=== PATIENT | male | born 1960 | race Caucasian/White ===

== ENCOUNTER 2021-09-26 14:10 | Emergency (ER) | payer BC, SELFPAY ==
--- NOTE | ~2021-09-26 | CT_ITS ---
EXAMINATION: CT brain wo con INDICATION: Loss of equilibrium COMPARISON: None TECHNIQUE: Standard unenhanced head CT. The dose-length product (DLP) was 605.33 mGy-cm. The mA was a djusted according to patient size. Iterative reconstruction technique was employed. FINDINGS: There is a crescentic extra-axial fluid collection adjacent to the right frontal and pariet al lobes which measures slightly greater than CSF attenuation. There is mild mass effect on the right frontal and parietal lobes. There is no acute intraparenchymal hemorrhage. No evidence of mass lesio n. No evidence of acute infarction. There is mild periventricular and subcortical hypodensity probabl y related to small vessel ischemic disease. There is mild prominence of the sulci and ventricles rela gordy to cerebral atrophy. Intracranial calcified cerebral atherosclerosis is noted. The orbits and sof t tissues are unremarkable. There is mild mucosal thickening of the paranasal sinuses. IMPRESSION: 1. Crescentic extra-axial fluid collection on the right measuring slightly greater than CSF attenuati on. Finding has the appearance of a resolving subdural hematoma. 2. Age related findings. Reviewed, dictated and finalized at location A. IMPRESSION: 1. Crescentic extra-axial fluid collection on the right measuring slightly grea ter than CSF attenuation. Finding has the appearance of a resolving subdural he matoma. 2. Age related findings.
--- NOTE | ~2021-09-26 | XR_ITS ---
EXAMINATION: XR chest 2V DATE: 09/26/2021 15:14 INDICATION: Weakness. TECHNIQUE: Frontal and lateral views of the chest were obtained. COMPARISON: None. FINDINGS: A calcified right lung nodule and calcified right hilar lymph nodes are consistent with old granulomatous disease. There are airspace opacities in the lower lung zones. No pneumothorax or pleu ral effusion. The heart size is normal. There are old healed bilateral rib fractures. IMPRESSION: 1. Airspace opacities in the lower lung zones, consistent with atelectasis or less likely pneumonia. Reviewed, dictated and finalized at location B. IMPRESSION: 1. Airspace opacities in the lower lung zones, consistent with atelectasis or l ess likely pneumonia.
[2021-09-26 14:38] VITALS: BP 151/87; PULSE 88; RESP 18; TEMP 37.1; O2SAT 97
--- NOTE | 2021-09-26 14:59 | ECG_ITS ---
Measurements Intervals [place] Rate: 82 P: -2 TN: 151 QRS: -2 QRSD: 89 T: 31 QT: 388 QTc: 455 Interpretive Statements SINUS RHYTHM BASELINE WANDER- V4-V5 NORMAL ECG Electronically Signed On 09-26-2021 15:41:36 CDT by Abhilash Werner D.O.
[2021-09-26 15:03] VITALS: BP 150/96; BP 152/84; BP 194/91; PULSE 112; PULSE 88; PULSE 96
[2021-09-26 15:31] LABS: Basophils Absolute Auto 0.1 K/mm3 (0.0-0.1); Basophils Percent Auto 1.3 % (0.2-1.2); Eosinophils Absolute Auto 0.2 K/mm3 (0-0.3); Eosinophils Percent Auto 4.5 % (0-4.4); Hematocrit 45.3 % (42.0-52.0); Immature Granulocyte Absolute 0.01 K/mm3 (0.00-0.031); Immature Granulocyte Percent A 0.2 % (0-0.5); Immature Platelet Fraction Pct 5.8 % (0.9-11.2); Lymphocytes Absolute Auto 1.47 K/mm3 (0.9-3.2); Lymphocytes Percent Auto 27.5 % (18.3-44.2); Mean Corpuscular HGB Conc 33.1 g/dl (32-36); Mean Corpuscular Hemoglobin 37.6 pg (26-34); Mean Corpuscular Volume 113.5 fl (80-100); Mean Platelet Volume 10.3 fl (7.4-10.4); Monocytes Absolute Auto 0.6 K/mm3 (0.1-0.6); Monocytes Percent Auto 10.5 % (2.6-8.5); Platelet Count Result 161 k/mm3 (150-375); Red Blood Count 3.99 M/mm3 (4.6-6.20); Red Cell Distribution Width 13.8 % (11.5-14.5); White Blood Count 5.3 K/mm3 (4.5-10.0)
[2021-09-26 15:39] LABS: Ethanol < 10 mg/dL (<10)
[2021-09-26 15:40] LABS: INR 1.2; Lactic Acid Reflex 1.7 mmol/L (0.7-2.0); Partial Thromboplastin Time 33.3 SECONDS (22.3-36.8); Prothrombin Time 15.1 Seconds (11.1-14.7)
[2021-09-26 15:42] LABS: Alanine Aminotransferase 20 U/L (4-50); Albumin Level 3.5 g/dL (3.5-5.1); Alkaline Phosphatase 107 U/L (38-126); Anion Gap 4 mmol/L (8-16); Aspartate Amino Transferase 40 U/L (17-59); Bilirubin,Total 1.4 mg/dL (0.2-1.3); Blood Urea Nitrogen 11 mg/dL (9-20); CRP < 0.5 mg/dL (<1.0); Calcium 8.7 mg/dL (8.4-10.2); Carbon Dioxide 29 mmol/L (22-30); Chloride 105 mmol/L (98-107); Estimated CRCL calculation 135 ml/min; Estimated Glomerular Filt Rate > 60; Glucose 103 mg/dL (65-110); Potassium 4.2 mmol/L (3.4-5.0); Sodium 138 mmol/L (137-145)
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
--- NOTE | 2021-09-26 16:17 | PC.NURSE ---
cancel blood cultures per Dr. Ramos d/t dx of brain bleed
[2021-09-26 18:29] VITALS: BP 181/71; PULSE 74; RESP 22; O2SAT 98
== END 2021-09-26 18:29 | disposition short-term general hospital (02) ==
PROVIDERS: Emergency Provider Emergency Medicine; PCP Internal Medicine
DX: S06.6X9A Traumatic subarachnoid hemorrhage with loss of consciousness of unspecified duration, initial encounter (principal); R91.8 Other nonspecific abnormal finding of lung field; W19.XXXA Unspecified fall, initial encounter
CPT/HCPCS: 36415; 70450; 71046; 80053; 80307; 83605; 85025; 85055; 85610; 85730; 86140; 93005; 99291